=== PATIENT | male | born 1985 | race Caucasian/White ===

== ENCOUNTER 2016-11-30 19:25 | Emergency (ER) | payer OTHER, SELFPAY ==
--- NOTE | ~2016-11-30 | ER ---
PATIENT'S NAME: SERAFIN NAZARIO [facility] AGE: 31 Y [address] ROOM: [place] [address] LOCATION: [facility] ADMIT DATE: 11/30/2016 ER/Outpatient Report DISCHARGE DATE: 11/30/2016 FAMILY PHYSICIAN: Mariano Meyer MD ATTENDING PHYSICIAN: Tony Morataya Time of Arrival: 1928 hours. Time of Evaluation: 1935 hours. CHIEF COMPLAINT: Swelling of the left knee. HISTORY OF PRESENT ILLNESS: The patient states he has had problems with swelling of the left knee for the last 1 to 1-1/2 months. States the pain is increased tonight and that is what brings him to the ER. He says that he has not had any trauma to his knee. No injury that he is aware of. He states the amount of swelling that he has now has stayed the same. He just feels like it is warmer than what it had been. He denies running a fever. ALLERGIES: NO KNOWN ALLERGIES. MEDICATIONS: No current medications. 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 REVIEW OF SYSTEMS: All negative other than those mentioned in the HPI. PHYSICAL EXAMINATION: VITAL SIGNS: He weighs 90.1 kg, blood pressure is 139/73, pulse of 93, respirations 16, temperature of 99.3 TemporalScanner, O2 saturation is 96% on room air. GENERAL: He is awake, alert, and oriented x4. SKIN: His skin is pink, warm, and dry. RESPIRATIONS: Even and nonlabored. Lung sounds are clear throughout. HEART: Regular rate and rhythm. EXTREMITIES: The patient has positive ballottement of both knees, left greater than right. Left knee does not feel warm to touch. He has strong pedal pulses. No peripheral edema. LABORATORY DATA AND X-RAYS: PATIENT'S NAME: SERAFIN NAZARIO [facility] AGE: 31 Y [address] ROOM: [place] [address] LOCATION: [facility] ADMIT DATE: 11/30/2016 ER/Outpatient Report DISCHARGE DATE: 11/30/2016 FAMILY PHYSICIAN: Mariano Meyer MD ATTENDING PHYSICIAN: Tony Morataya X-ray was completed. No bony abnormality was seen. It was reviewed with Dr. Hood. Lab work was done. CBC is within normal limits. Sedimentation rate was 1. Chem panel was completed, it is within normal limits. His CRP was less than 0.29. IMPRESSION: Left knee swelling. PLAN: Home, rest. Ice to the knee area. Prescription was written for [facility]. He is to follow up with Ryland Phan, his orthopedic preference, in the next week or sooner if symptoms worsen. He verbalized understanding. DINA BERNAL APRN FOR MD MARISEL MORALES/isidro /[id number] d: 12/01/16309 t: 12/03/16 1813, OUTPATIENT REPORT
[2016-11-30 20:05] LABS: BASOPHIL # 0.1 K/uL (0.0-0.2); BASOPHIL % 0.7 %; EOSINOPHIL # 0.5 K/uL (0.0-0.5); EOSINOPHIL % 5.4 %; HEMOGLOBIN 15.8 g/dL (12.0-17.0); IMMATURE GRANULOCYTE % 0.2 %; LYMPHOCYTE % 44.7 %; MCH 30.4 pg (27.0-34.0); MCHC 34.3 gm/dL (32.0-36.5); MCV 88.6 fl (83.0-98.0); MONOCYTE # 0.9 K/uL (0.0-1.0); MONOCYTE % 9.8 %; MPV 9.4 fl (9.4-12.4); NEUTROPHIL # (ANC) 3.5 K/uL (1.4-9.0); NEUTROPHIL % 39.2 %; NRBC % 0 /100WBC (0-0.00); PLATELET COUNT 218 K/uL (150-450); RBC 5.19 M/uL (4.00-6.00); RDW-CV 12.5 % (11.9-14.6); WBC 8.9 K/uL (4.0-11.0)
[2016-11-30 20:21] LABS: ALBUMIN 4.1 gm/dL (3.5-5.0); ALK PHOS 104 IU/L (33-138); ALT 29 IU/L (12-78); BLOOD UREA NITROGEN 16 mg/dL (6-24); CALCIUM 8.3 mg/dL (8.5-10.5); CHLORIDE 106 mMol/L (96-110); CO2 27 mMol/L (22-32); CREATININE 1.1 mg/dL (0.6-1.3); ESTIMATED GFR (MDRD EQUATION) > 60; SODIUM 141 mMol/L (135-145); TOTAL BILIRUBIN 0.3 mg/dL (0.0-1.5); TOTAL PROTEIN 7.1 g/dL (6.0-8.4)
[2016-11-30 20:29] LABS: ANION GAP 11.9 (10.0-19.0); AST 21 IU/L (10-40); POTASSIUM 3.9 mMol/L (3.7-5.1)
== END 2016-11-30 20:42 | disposition disaster alternative care site (69) ==
LOC: GMED 19:25
PROVIDERS: Emergency Medicine
DX: M25.462 Effusion, left knee (principal)